=== PATIENT | female | born 1985 | race Caucasian/White ===

== ENCOUNTER 2017-02-21 16:35 | Outpatient (CLI) | payer BC ==
[~2017-02-21] VITALS: Ht 157.5 cm; Wt 99.8 kg
[~2017-02-21 16:35] MED LIST: ALBUTEROL SULF8.5 GM IH; ENDOCET 5-3251 EACH PO; IBUPROFEN800 MG PO; MOTRIN800 MG PO; Motrin PO; PERCOCET 5/31 TABLET PO; PREDNISONE20 MG PO; PRENATAL1 EACH PO; PROVENTIL,2.5 MG/3 M IH; STOOL SOFTENER100 MG PO; TYLENOL EXTRA500 MG PO
[2017-02-21 16:49] VITALS: BP 121/73
== END 2017-02-21 17:10 | disposition home or self-care (01) ==
LOC: LDRP-OP 16:35 → 2WEST 16:38
DX: O36.8120 Decreased fetal movements, second trimester, not applicable or unspecified (principal); R05 Cough; Z3A.24 24 weeks gestation of pregnancy
CPT/HCPCS: 59025; G0378

== ENCOUNTER 2017-06-14 07:06 | Inpatient (IN) | payer BC ==
[~2017-06-14] VITALS: Ht 157.5 cm; Wt 101.1 kg
[2017-06-14] MEDS ORDERED: PRENATAL TABLE1 EAC3 PO (07:52)
[2017-06-14 09:25] LABS: BASOPHIL (%) 0.4 % (0-1); EOSINOPHIL COUNT 0.1 K/uL (0-0.3); HEMATOCRIT 33.7 % (36.0-46.0); HEMOGLOBIN 10.6 G/DL (11.9-15.5); IMMATURE GRANULOCYTE (%) 0.5 % (0.0-0.7); LYMPHOCYTE (%) 15.3 % (15-42); LYMPHOCYTE COUNT 1.2 K/uL (1.0-2.8); MCH 26.1 PG (29.0-34.0); MCHC 31.5 G/DL (30.0-36.0); MONOCYTE (%) 6.6 % (3-12); MONOCYTE COUNT 0.5 K/uL (0-0.8); NEUTROPHIL (%) 76.2 % (45-76); NEUTROPHIL COUNT 5.9 K/uL (1.8-6.4); PLATELET COUNT 202 K/uL (156-360); RBC DIS.WIDTH-CV 15.3 % (11.8-14.6); RBC DIS.WIDTH-SD 45.4 % (39-53); RED BLOOD COUNT 4.06 M/uL (3.80-5.20); WHITE BLOOD COUNT 7.7 K/uL (4.1-10.2)
[2017-06-14 20:00] VITALS: BP 134/64
[2017-06-15 06:26] LABS: BASOPHIL (%) 0.2 % (0-1); EOSINOPHIL (%) 0.2 % (0-5); HEMATOCRIT 24.5 % (36.0-46.0); IMMATURE GRANULOCYTE (%) 0.4 % (0.0-0.7); LYMPHOCYTE (%) 13.6 % (15-42); LYMPHOCYTE COUNT 1.2 K/uL (1.0-2.8); MCH 26.8 PG (29.0-34.0); MCHC 31.4 G/DL (30.0-36.0); MCV 85.4 FL (83-99); MONOCYTE (%) 7.5 % (3-12); MONOCYTE COUNT 0.7 K/uL (0-0.8); NEUTROPHIL (%) 78.1 % (45-76); NEUTROPHIL COUNT 7.1 K/uL (1.8-6.4); PLATELET COUNT 153 K/uL (156-360); RBC DIS.WIDTH-CV 15.5 % (11.8-14.6); RBC DIS.WIDTH-SD 47.9 % (39-53); WHITE BLOOD COUNT 9.1 K/uL (4.1-10.2)
[2017-06-15 06:29] LABS: HEMOGLOBIN 7.7 G/DL (11.9-15.5); RED BLOOD COUNT 2.87 M/uL (3.80-5.20)
[2017-06-18] MEDS ORDERED: FERROUS SULFAT325 MG PO (10:01)
[2017-06-18] MEDS ORDERED: VICODIN 5-3001 EACH PO (10:09)
[2017-06-18] MEDS ORDERED: IBUPROFEN800 MG PO (10:09)
== END 2017-06-18 13:34 | disposition home or self-care (01) | DRG 765 ==
LOC: LDRP-OP 07:06 → 2WEST 07:07 → LDRP-OP 19:30 → 2WEST 06-18 13:34 → LDRP-OP 07-11 18:48
PROVIDERS: Advanced Practice Midwife; Obstetrics & Gynecology
DX: O69.0XX0 Labor and delivery complicated by prolapse of cord, not applicable or unspecified (principal); O76 Abnormality in fetal heart rate and rhythm complicating labor and delivery; O99.02 Anemia complicating childbirth; D62 Acute posthemorrhagic anemia; Z3A.40 40 weeks gestation of pregnancy; Z37.0 Single live birth; O99.213 Obesity complicating pregnancy, third trimester; E66.01 Morbid (severe) obesity due to excess calories; Z68.41 Body mass index [BMI] 40.0-44.9, adult; O22.43 Hemorrhoids in pregnancy, third trimester; O99.89 Other specified diseases and conditions complicating pregnancy, childbirth and the puerperium; M54.30 Sciatica, unspecified side
CPT/HCPCS: 85025; 86850; 86900; 86901; C1755; J0690; J1100; J1170; J1200; J2250; J2274; J2405; J3010; J7120